=== PATIENT | female | born 1985 | race Hispanic/Latino ===

== ENCOUNTER 2022-04-08 09:43 | Emergency (ER) | payer OTHER ==
[~2022-04-08] VITALS: Ht 162.6 cm; Wt 86.2 kg
[2022-04-08] MEDS ORDERED: IBUPROFEN 600 MG TAB PO STA (10:19)
[2022-04-08] MEDS ORDERED: IBUPROFEN 400 MG TAB ONE (10:42)
[2022-04-08] MEDS ORDERED: MELOXICAM7.5 MG PO (11:38)
== END 2022-04-08 11:49 | disposition home or self-care (01) ==
LOC: FSED 10:18
DX: M25.572 Pain in left ankle and joints of left foot (principal); S93.492A Sprain of other ligament of left ankle, initial encounter; W18.39XA Other fall on same level, initial encounter; Y93.01 Activity, walking, marching and hiking; Y92.89 Other specified places as the place of occurrence of the external cause; Z98.84 Bariatric surgery status
CPT/HCPCS: 99284